=== PATIENT | male | born 1985 | race Asian ===

== ENCOUNTER 2023-09-18 20:37 | Emergency (ER) | payer OTHER ==
[~2023-09-18] VITALS: Ht 160 cm; Wt 61.4 kg
[2023-09-18 20:51] VITALS: BP 129/75; PULSE 118; RESP 14; TEMP 97.1
[2023-09-18 21:14] LABS: COVID AG,FIA SOURCE NASAL SWAB
[2023-09-18 21:36] LABS: INFLUENZA TYPE A NEGATIVE FOR TYPE A (NEGATIVE); INFLUENZA TYPE B NEGATIVE FOR TYPE B (NEGATIVE); SARS-COV2 (COVID) ANTIGEN,FIA Negative (Negative)
== END 2023-09-19 01:20 | disposition left against medical advice (07) ==
LOC: EMS 20:40
DX: R07.9 Chest pain, unspecified (principal); Z20.822 Contact with and (suspected) exposure to COVID-19; Z53.21 Procedure and treatment not carried out due to patient leaving prior to being seen by health care provider
CPT/HCPCS: 87804